=== PATIENT | female | born 1985 ===

== ENCOUNTER 2017-02-06 20:52 | Emergency (ER) | payer MEDICAID ==
[2017-02-06 21:02] VITALS: BMI 51.5
--- NOTE | 2017-02-06 21:17 | ED PDOC ---
Arrival/HPI - General Chief Complaint: Allergic Reaction Time Seen by Provider: 02/06/17 21:08 - History of Present Illness Narrative History of Present Illness (Text): 02/06/17 21:17 31 y/o F w/ no significant PMHx was BIBA for allergic reaction. Pt states she ate some shrimp this even and immediately experienced face swelling, SOB, and pruritus. Pt admits to having a less severe reaction to shrimp a few yrs ago at which time she had rash, pruritus and SOB. Pt states that she has eaten shrimp since that 1st episode w/ little to no reaction. Pt admits to being allergic to IV contrast. Currently, pt c/o nausea and abd pain s/p 1episode of vomiting. 02/06/17 21:25 Pt received Benadryl, solumedrol, and [place] x3 in the field. (Maryanne Louise) Past Medical History - Provider Review Nursing Documentation Reviewed: Yes - Psychiatric Hx Substance Use: No Family/Social History - Physician Review Nursing Documentation Reviewed: Yes Family/Social History: No Known Family HX Smoking Status: no Hx Alcohol Use: No Hx Substance Use: No Allergies/Home Meds Allergies/Adverse Reactions: Allergies iodine Allergy (Verified 02/06/17 21:03) RASH Review of Systems - Physician Review All systems were reviewed & negative as marked: Yes - Review of Systems Constitutional: absent: Fevers Cardiovascular: absent: Chest Pain Physical Exam Vital Signs Reviewed: Yes Temperature: Afebrile Blood Pressure: Normal Pulse: Tachycardic Respiratory Rate: Normal Appearance: Positive for: Non-Toxic, Comfortable Pain Distress: Mild Mental Status: Positive for: Alert and Oriented X 3 - Systems Exam Head: Present: Atraumatic, Normocephalic Pupils: Present: PERRL Extroacular Muscles: Present: EOMI Conjunctiva: Present: Normal Mouth: Present: Moist Mucous Membranes Respiratory/Chest: Present: Clear to Auscultation, Good Air Exchange. No: Respiratory Distress, Accessory Muscle Use Cardiovascular: Present: Normal S1, S2, Tachycardic. No: Murmurs Abdomen: Present: Tenderness (suprapubic TTP), Normal Bowel Sounds. No: Distention, Peritoneal Signs, Rebound, Guarding Upper Extremity: Present: Normal Inspection Lower Extremity: Present: Normal Inspection Neurological: Present: GCS=15, Speech Normal Skin: Present: Warm, Dry, Normal Color. No: Rashes Psychiatric: Present: Alert, Oriented x 3, Normal Insight, Normal Concentration Medical Decision Making - Lab Interpretations I have reviewed the lab results: Yes - EKG Interpretation Interpreted by ED Physician: Yes (sinus tach, rate 103, no ST changes.) Type: 12 lead EKG - Transfer of Care Patient signed out to Dr:: Mely Pending Radiology Studies:: Pelvic US; CXR ED Course and Treatment: 02/06/17 21:24 31 y/o F s/p allergic reaction - zofran - Toradol pending urine preg - UA, UCx 02/06/17 22:45 Pt still c/o abd pain. Toradol ordered UA results (+) yeast (+) bacteria - likely dirty sample. Pelvic US ordered for suprapubic pain. 02/06/17 22:57 Pt will be discharged to home w/ EpiPen and Prednisone 40mg x4days Home benadryl PRN 02/06/17 22:58 (Maryanne Louise) 02/06/17 23:[address] Carr, pending US. (Marichuy Powers) - Lab Interpretations Lab Results: Lab Results 02/06/17 20:08: Urine Color Yellow, Urine Appearance Clear, Urine pH 6.5, Ur Specific [place] 1.020, Urine Protein Trace H, Urine Glucose (UA) Negative, Urine Ketones Trace H, Urine Blood Small H, Urine Nitrate Negative, Urine Bilirubin Negative, Urine Urobilinogen 0.2, Ur Leukocyte Esterase Negative, Urine RBC 5 - 10, Urine WBC 0 - 2, Ur Epithelial Cells 6 - 8, Amorphous Sediment Few, Urine Bacteria Many, Urine Other Uyeast - RAD Interpretation Radiology Orders: 02/06/17 21:28 CXR [CHEST PORTABLE] [RAD] Stat 02/06/17 22:40 TRANSVAGINAL [US] Stat - Medication Orders Current Medication Orders: Discontinued Medications Ketorolac Tromethamine (Toradol) 30 mg IVP STAT STA Stop: 02/06/17 22:42 Last Admin: 02/06/17 23:59 Dose: Not Given Non-Admin Reason: Patient Refused Ondansetron HCl (Zofran Inj) 4 mg IVP STAT STA Stop: 02/06/17 21:30 Last Admin: 02/06/17 22:14 Dose: 4 mg Disposition/Present on Arrival - Present on Arrival Any Indicators Present on Arrival: No History of DVT/PE: No History of Uncontrolled Diabetes: No Urinary Catheter: No History of Decub. Ulcer: No History Surgical Site Infection Following: None - Disposition Have Diagnosis and Disposition been Completed?: No Disposition Time: 22:47 - Disposition Diagnosis: Abdominal pain, Allergic reaction to food Disposition: HOME/ ROUTINE Condition: STABLE Discharge Instructions (ExitCare): Epinephrine (By injection), Food Allergy (ED ), Anaphylaxis (ED) Additional Instructions: follow up with primary medical doctor within 1 week Keep EpiPen with you at all times takes Prednisone 40mg x4days Return to the ED if rash, difficulty breathing, or swelling develops/or any recurrent pain Prescriptions: DiphenhydrAMINE [Benadryl] 50 mg PO Q6 PRN #24 cap PRN Reason: Itching / Pruritus Epinephrine [Epipen] 0.3 mg IJ ONCE PRN #1 auto.injct PRN Reason: Anaphylaxis Prednisone [Deltasone] 40 mg PO DAILY #4 tablet Referrals: Luzma Xiao MD [Primary Care Provider] - Follow up with primary - Notes Notes (Text): 02/07/17 11:[address] carr pending US and reeval. (Marichuy Powers)
[2017-02-06 22:22] VITALS: RESP 16; TEMP 98.7
[2017-02-06 22:23] LABS: PH,URINE 6.5 (4.7-8.0); URINE BILIRUBIN NEGATIVE (NEGATIVE); URINE BLOOD SMALL (NEGATIVE); URINE GLUCOSE (UA) NEGATIVE (NEGATIVE); URINE KETONE TRACE mg/dL (NEGATIVE); URINE LEUKOCYTE ESTERASE NEGATIVE Leu/uL (NEGATIVE); URINE PROTEIN TRACE mg/dL (<30 mg/dL); URINE UROBILINOGEN 0.2 E.U./dL (<1 E.U./dL)
[2017-02-06 22:25] LABS: URINE APPEARANCE CLEAR (CLEAR); URINE COLOR YELLOW (YELLOW)
[2017-02-06 22:27] LABS: URINE WBC 0 - 2 /hpf (0-6)
[2017-02-06 22:28] LABS: URINE AMORPHOUS SEDIMENT FEW; URINE BACTERIA MANY (NEG)
--- NOTE | 2017-02-07 00:15 | ED PDOC ---
Physical Exam Vital Signs Reviewed: Yes Vital Signs Temp Pulse Resp BP Pulse Ox 02/06/17 22:21 98.7 F 102 H 16 119/55 L 99 Temperature: Afebrile Blood Pressure: Normal Pulse: Regular Respiratory Rate: Normal Appearance: Positive for: Well-Appearing, Non-Toxic, Comfortable Pain Distress: None Mental Status: Positive for: Alert and Oriented X 3 Medical Decision Making ED Course and Treatment: 02/06/17 23:00 Case endorsed to me by Dr. Powers and medical unit secretary, pending US. 02/07/17 01:22 US Pelvis Complete, Transabdominal shows: Limited by incomplete bladder distention, normal-sized uterus US Pelvis, Transvaginal shows: Normal transvaginal pelvic ultrasound 02/07/17 01:51 On repeat exam, there is no rash. Pt denies any abdominal pain or any other symptoms. I have discussed the results and plan with the patient, who expresses understanding. Patient given the opportunity to ask question, all questions were answered and there is agreement with the plan to discharge the patient home. Patient is stable for discharge. Patient was instructed to follow up with physician/STUDIO OPERATOR/clinic in 1-2 days or return if symptoms persist/ worsen or new concerning symptoms arise. - Lab Interpretations Lab Results: Lab Results 02/06/17 20:08: Urine Color Yellow, Urine Appearance Clear, Urine pH 6.5, Ur Specific [place] 1.020, Urine Protein Trace H, Urine Glucose (UA) Negative, Urine Ketones Trace H, Urine Blood Small H, Urine Nitrate Negative, Urine Bilirubin Negative, Urine Urobilinogen 0.2, Ur Leukocyte Esterase Negative, Urine RBC 5 - 10, Urine WBC 0 - 2, Ur Epithelial Cells 6 - 8, Amorphous Sediment Few, Urine Bacteria Many, Urine Other Uyeast - RAD Interpretation Narrative RAD Interpretations (Text): US Pelvis Complete, Transabdominal shows: Uterus: Uterus measures approximately 9 x 4 x 5.7 cm. Endometrium measures approximately 9 mm. There is a nabothian cyst Right ovary: Right ovary could not be identified Left ovary: Left ovary could not be identified Free fluid: No free fluid. Bladder: Bladder is incompletely distended IMPRESSION: Limited by incomplete bladder distention, normal-sized uterus US Pelvis, Transvaginal shows: Uterus: Endometrium measures approximately 5.3 mm in width. There is a nabothian cyst in the cervix. Right ovary: Right ovary measures approximately 3.45 x 2.57 x 2.57 cm. There are multiple small follicles. There is intraovarian blood flow. Left ovary: Left ovary measures approximately 3.62 x 2.37 x 2.33 cm. There are multiple small follicles. There is intraovarian blood flow. Free fluid: There is no free fluid. Bladder: Bladder is empty IMPRESSION: Normal transvaginal pelvic ultrasound Radiology Orders: 02/06/17 21:28 CXR [CHEST PORTABLE] [RAD] Stat 02/06/17 22:40 TRANSVAGINAL [US] Stat Field Handyman: Radiologist - Medication Orders Current Medication Orders: Discontinued Medications Ketorolac Tromethamine (Toradol) 30 mg IVP STAT STA Stop: 02/06/17 22:42 Last Admin: 02/06/17 23:59 Dose: Not Given Non-Admin Reason: Patient Refused Ondansetron HCl (Zofran Inj) 4 mg IVP STAT STA Stop: 02/06/17 21:30 Last Admin: 02/06/17 22:14 Dose: 4 mg Disposition/Present on Arrival - Present on Arrival Any Indicators Present on Arrival: No History of DVT/PE: No History of Uncontrolled Diabetes: No Urinary Catheter: No History of Decub. Ulcer: No History Surgical Site Infection Following: None - Disposition Have Diagnosis and Disposition been Completed?: Yes Diagnosis: Abdominal pain, Allergic reaction to food Disposition: HOME/ ROUTINE Disposition Time: 01:47 Patient Problems: Current Active Problems Problem Status Onset Abdominal pain Acute Allergic reaction to food Acute Condition: STABLE Discharge Instructions (ExitCare): Epinephrine (By injection), Food Allergy (ED ), Anaphylaxis (ED) Additional Instructions: follow up with primary medical doctor within 1 week Keep EpiPen with you at all times takes Prednisone 40mg x4days Return to the ED if rash, difficulty breathing, or swelling develops/or any recurrent pain Prescriptions: DiphenhydrAMINE [Benadryl] 50 mg PO Q6 PRN #24 cap PRN Reason: Itching / Pruritus Prednisone [Deltasone] 40 mg PO DAILY #4 tablet Epinephrine [Epipen] 0.3 mg IJ ONCE PRN #1 auto.injct PRN Reason: Anaphylaxis Referrals: Luzma Xiao MD [Primary Care Provider] - Follow up with primary
--- NOTE | 2017-02-07 01:14 | US ---
EXAM: US Pelvis Complete, Transabdominal CLINICAL HISTORY: 31 years old, female; Pain; Pelvic pain; Additional info: Suprapubic pain; LMP 02/04/17 TECHNIQUE: Real-time transabdominal pelvic ultrasound (complete) with image documentation. COMPARISON: There are no prior studies for comparison. FINDINGS: Uterus: Uterus measures approximately 9 x 4 x 5.7 cm. Endometrium measures approximately 9 mm. There is a nabothian cyst Right ovary: Right ovary could not be identified Left ovary: Left ovary could not be identified Free fluid: No free fluid. Bladder: Bladder is incompletely distended IMPRESSION: Limited by incomplete bladder distention, normal-sized uterus EXAM: US Pelvis, Transvaginal CLINICAL HISTORY: 31 years old, female; Pain; Pelvic pain; Additional info: Suprapubic pain; LMP 02/04/17 TECHNIQUE: Real-time transvaginal pelvic ultrasound (complete) with image documentation. Transvaginal imaging was used for better evaluation of the endometrium and adnexa. EXAM DATE/TIME: 02/06/2017 10:40 PM COMPARISON: There are no prior studies for comparison. FINDINGS: Uterus: Endometrium measures approximately 5.3 mm in width. There is a nabothian cyst in the cervix. Right ovary: Right ovary measures approximately 3.45 x 2.57 x 2.57 cm. There are multiple small follicles. There is intraovarian blood flow. Left ovary: Left ovary measures approximately 3.62 x 2.37 x 2.33 cm. There are multiple small follicles. There is intraovarian blood flow. Free fluid: There is no free fluid. Bladder: Bladder is empty IMPRESSION: Normal transvaginal pelvic ultrasound IMPRESSION: - Normal pelvic ultrasound.
[2017-02-07 02:05] VITALS: BP 108/60; PULSE 93; O2SAT 94
--- NOTE | 2017-02-07 08:44 | RAD ---
HISTORY: s/p anaphylaxis COMPARISON: No prior. FINDINGS: LUNGS: No active pulmonary disease. PLEURA: No significant pleural effusion identified, no pneumothorax apparent. CARDIOVASCULAR: Normal. OSSEOUS STRUCTURES: No significant abnormalities. VISUALIZED UPPER ABDOMEN: Normal. OTHER FINDINGS: None. IMPRESSION: No active disease.
--- NOTE | 2017-02-07 16:11 | CARD ---
APPROVED REPORT EKG Measurement Heart [id number] <Conclusion> Sinus tachycardia Otherwise normal ECG
== END 2017-02-07 02:04 | disposition home or self-care (01) ==
LOC: ED 20:52
DX: T78.1XXA Other adverse food reactions, not elsewhere classified, initial encounter (principal); R06.02 Shortness of breath; L29.9 Pruritus, unspecified; R22.0 Localized swelling, mass and lump, head; X58.XXXA Exposure to other specified factors, initial encounter; R10.9 Unspecified abdominal pain
CPT/HCPCS: 71010; 76830; 81001; 87086; 93005; 96374; 99284; J2405